=== PATIENT | female | born 1995 | race Two or more races ===

== ENCOUNTER 2018-04-11 22:46 | Emergency (ER) | payer SELFPAY ==
[~2018-04-11] VITALS: Ht 167.6 cm; Wt 77.0 kg
[2018-04-12] MEDS ORDERED: KETOROLAC TROMETHAMINE 60 MG/2 ML VIAL IM ONE (04:00)
[2018-04-12] MEDS ORDERED: KETOROLAC TROMETHAMINE 30 MG/ML VIAL IVP ONE (04:15)
[2018-04-12 04:28] VITALS: BP 138/80
== END 2018-04-12 04:33 | disposition home or self-care (01) ==
LOC: EMS 22:47
DX: R07.89 Other chest pain (principal); R06.02 Shortness of breath
CPT/HCPCS: 71045; 81025 ×2; 93005; 96374; 99284; J1885